=== PATIENT | female | born 1945 | race Caucasian/White ===

== ENCOUNTER 2021-01-23 13:12 | Outpatient (CLI) | payer MEDICARE, BC | END 2021-01-23 13:13 | disposition home or self-care (01) | LOC: CSHULT 13:12 | PROVIDERS: ATTEND Internal Medicine | DX: R01.1 Cardiac murmur, unspecified (principal); R94.31 Abnormal electrocardiogram [ECG] [EKG] | CPT/HCPCS: 93306 ==